=== PATIENT | female | born 1950 | race African-American/Black ===

== ENCOUNTER 2018-09-05 08:37 | Emergency (ER) | payer MEDICARE, OTHER ==
[~2018-09-05] VITALS: Ht 154.9 cm; Wt 68.0 kg
[2018-09-05] MEDS ORDERED: SODIUM CHLORIDE 0.9% 1,000 ML IV ONE (09:16)
[2018-09-05] MEDS ORDERED: KETOROLAC 30MG/ML VIAL IV STA (09:16)
[2018-09-05 09:32] LABS: BASOPHILS % 1.4 % (0.0-2.0); EOSINOPHILS % 0.9 % (0.0-5.0); HEMATOCRIT. 34.3 % (36.0-48.0); HEMOGLOBIN. 11.2 g/dL (12.0-16.0); LYMPHOCYTES % 41.9 % (20.0-50.0); MEAN CORPUSCULAR VOLUME 82.8 fL (81.0-99.0); MONOCYTES % 4.5 % (2.0-8.0); NEUTROPHILS % 51.3 % (40.0-76.0); RED BLOOD CELL COUNT 4.14 mill/uL (4.2-5.4); RED CELL DISTRIBUTION WIDTH 16.1 % (11.6-14.6)
[2018-09-05 09:39] LABS: CHLORIDE 107 mEq/L (98-107)
[2018-09-05 09:53] LABS: PLATELET 228 x1000/uL (130-400)
[2018-09-05 09:54] LABS: MEAN PLATELET VOLUME 8.2 fl (7.4-10.4)
[2018-09-05] MEDS ORDERED: MORPHINE SULFATE 4 MG/ML CPJ (NOT FOR IM USE) IV ONE (12:15)
[2018-09-05] MEDS ORDERED: ACETAMINOPHEN 325MG TABLET PO ONE (13:15)
[2018-09-05 14:00] VITALS: BP 152/74
== END 2018-09-05 14:35 | disposition home or self-care (01) ==
LOC: ER 08:52
DX: K80.20 Calculus of gallbladder without cholecystitis without obstruction (principal)
CPT/HCPCS: 36415; 76705; 80053; 83690; 85025; 85610; 93005; 96361; 96374; 99284; J1885; J7030; J2270

== ENCOUNTER 2019-08-18 10:31 | Emergency (ER) | payer MEDICARE ==
[~2019-08-18] VITALS: Ht 165.1 cm; Wt 66.0 kg
[2019-08-18 11:39] LABS: EOSINOPHILS % 2.4 % (0.0-5.0); HEMATOCRIT. 33.3 % (36.0-48.0); HEMOGLOBIN. 11.2 g/dL (12.0-16.0); LYMPHOCYTES % 54.2 % (20.0-50.0); MEAN CORPUSCULAR VOLUME 80.2 fL (81.0-99.0); MEAN PLATELET VOLUME 7.9 fl (7.4-10.4); NEUTROPHILS % 34.4 % (40.0-76.0); PLATELET 185 x1000/uL (130-400); RED BLOOD CELL COUNT 4.15 mill/uL (4.2-5.4); RED CELL DISTRIBUTION WIDTH 18.9 % (11.6-14.6)
[2019-08-18] MEDS ORDERED: SODIUM CHLORIDE 0.9% 500 ML IV ONE (11:41)
[2019-08-18 11:45] LABS: CHLORIDE 107 mEq/L (98-107)
[2019-08-18 12:57] VITALS: BP 130/75
== END 2019-08-18 13:32 | disposition home or self-care (01) ==
LOC: ER 11:19
DX: R00.2 Palpitations (principal); E86.0 Dehydration; R42 Dizziness and giddiness; I10 Essential (primary) hypertension; Z90.49 Acquired absence of other specified parts of digestive tract; Z90.710 Acquired absence of both cervix and uterus; Z98.890 Other specified postprocedural states; Z87.19 Personal history of other diseases of the digestive system; Z88.5 Allergy status to narcotic agent
CPT/HCPCS: 36415; 71045; 80053; 83880; 84484; 85025; 93005; 96360; 99284; J7030

== ENCOUNTER 2024-11-06 09:48 | Emergency (ER) | payer MEDICARE ==
[~2024-11-06] VITALS: Ht 160 cm; Wt 58.0 kg
[2024-11-06 09:50] VITALS: PULSE 92; RESP 14; O2SAT 99
[2024-11-06 09:54] VITALS: BP 139/75; TEMP 36.8; O2SAT 98
[2024-11-06 10:25] LABS: BASOPHILS % 0.9 % (0.0-2.0); EOSINOPHILS % 3.2 % (0.0-5.0); HEMOGLOBIN. 10.8 g/dL (12.0-16.0); LYMPHOCYTES % 44.8 % (20.0-50.0); MEAN CORPUSCULAR HEMOGLOBIN 29.4 pg (28.0-32.0); MEAN CORPUSCULAR HGB CONC 33.7 g/dL (31.0-37.0); MEAN CORPUSCULAR VOLUME 87.3 fL (81.0-99.0); MEAN PLATELET VOLUME 7.5 fl (7.4-10.4); MONOCYTES % 8.9 % (2.0-8.0); NEUTROPHILS % 42.2 % (40.0-76.0); PLATELET 180 x1000/uL (130-400); RED BLOOD CELL COUNT 3.67 mill/uL (4.2-5.4); RED CELL DISTRIBUTION WIDTH 14.9 % (11.6-14.6); WHITE BLOOD COUNT 3.4 x1000/uL (4.5-11.0)
[2024-11-06 10:31] LABS: INR 0.9; PROTHROMBIN TIME 9.8 sec (9.6-11.0)
[2024-11-06 10:49] LABS: CHLORIDE 104 mEq/L (98-107); POTASSIUM 3.9 mEq/L (3.5-5.1); SODIUM 139 mEq/L (136-145)
[2024-11-06 10:50] LABS: CARBON DIOXIDE 29 mEq/L (21-32)
[2024-11-06 10:51] LABS: CALCIUM 9.2 mg/dL (8.7-10.4)
[2024-11-06 10:55] LABS: CREATININE 0.8 mg/dL (0.6-1.0); GLUCOSE 87 mg/dL (70-105); UREA NITROGEN BLOOD 14 mg/dL (9-23)
[2024-11-06 11:34] LABS: TROPONIN I HIGH SENSITIVITY < 4 ng/L (3.0-34)
== END 2024-11-06 12:14 | disposition home or self-care (01) ==
LOC: ER 09:48
DX: R00.2 Palpitations (principal); I10 Essential (primary) hypertension; Z90.710 Acquired absence of both cervix and uterus; Z90.49 Acquired absence of other specified parts of digestive tract; Z88.5 Allergy status to narcotic agent; Z79.899 Other long term (current) drug therapy
CPT/HCPCS: 36415; 71045; 80048; 83880; 84484; 85025; 93005; 99285